=== PATIENT | female | born 1955 | race Caucasian/White ===

== ENCOUNTER 2017-08-06 08:23 | Emergency (ER) | payer OTHER ==
[2017-08-06] MEDS ORDERED: SODIUM CHLORIDE 0.9% 1000 ML INFUS.BAG IV ONE (08:36)
[2017-08-06] MEDS ORDERED: ONDANSETRON 4 MG/2 ML VIAL IVPUSH ONE (08:36)
--- NOTE | 2017-08-06 08:36 | PDOC ---
History of Present Illness - General Chief Complaint: Pain Stated Complaint: ABDOMINAL PAIN Time Seen by Provider: 08/06/17 08:27 - History of Present Illness Initial Comments: 08/06/17 09:31 Chief complaint: Nausea vomiting diarrhea abdominal pain History of present illness: 62 years old no significant past medical history presents to the emergency department with history of nausea vomiting diarrhea and diffuse abdominal pain. Prior to illness patient had several days of subjective fever chills body aches. No travel no sick contacts today has had greater than 10 episodes of nonbilious bloody nonbilious emesis and nonbloody watery diarrhea. No recent hospitalizations no recent travel. Abdominal discomfort is diffuse crampy comes and goes usually associated with the episodes of vomiting and the diarrhea. Symptoms are moderate persistent constant no exacerbating or alleviating factors Past History - Past Medical History Allergies/Adverse Reactions: Allergies Allergy/AdvReac Type Severity Reaction Status Date / Time erythromycin base AdvReac Verified 08/06/17 08:47 [Erythromycin Base] Home Medications: Ambulatory Orders Levothyroxine [Synthroid -] 88 mcg PO DAILY 06/05/14 Ondansetron [Zofran Odt -] 4 mg SL BID #14 od.tablet 08/06/17 Cancer: Yes (THYROID CA) Thyroid Disease: Yes - Suicide/Smoking/Psychosocial Hx Smoking Status: No Smoking History: Never smoked Number of Cigarettes Smoked Daily: 0 Hx Alcohol Use: No Drug/Substance Use Hx: No Review of Systems - Review of Systems Comments:: 08/06/17 09:34 ROS: A complete review of 10 out of 10 review of systems is taken and is negative apart from what is previously mentioned below and in the HPI. *Physical Exam - Physical Exam Comments: 08/06/17 09:34 Vitals: Triage Vital signs reviewed General Appearance: no acute distress, well nourished well developed, Head: Atraumatic, Eyes: Pupils equal reactive round, extraocular movement intact Throat: Posterior oropharynx without erythema, mucous membranes moist, Neck: Supple;No Nucal rigidity Chest Wall: Nontender Cardiac: Regular rate and rhythym, no murmurs, no rubs, no gallops, Lungs: Clear to auscultation bilateral, good air movement bilaterally, Abdomen: Soft, non distended, normal bowel sounds, mild diffuse tenderness to palpation. No localizing tenderness to palpation. No McBurney's point tenderness. No rebound no guarding Extremities: Full range of motion to all extremities, no cyanosis, clubbing, or edema Skin: Warm and dry, no rashes or lesions, no rash, no petechiae Neuro: AOX3; Cranial Nerves 2-12 grossly intact, Strength intact to all extremities, Sensation intact to all extremities,gait normal Psych: normal mood, normal affect ED Treatment Course - LABORATORY CBC & Chemistry Diagram: 08/06/17 09:08 08/06/17 09:08 Medical Decision Making - Medical Decision Making 08/06/17 09:37 62 years old no significant past medical history presents to the ED with 1 day history of profuse nausea vomiting diarrhea and use abdominal discomfort. Differential diagnosis includes influenza, viral GI illness, food borne illness , less likely acute surgical abdominal pathology such as appendicitis We will treat with IV fluids and antiemetics perform serial abdominal examinations labs and reassess 08/06/17 12:15 Patient feels much better after fluids antiemetics History examination consistent with influenza-like illness We'll recommend alternating Tylenol Motrin liquid diet times one day and Zofran for nausea. Repeat abdominal examination benign no rebound no guarding no localizing tenderness to palpation Findings, the need for follow-up, strict return instructions discussed with patient. *DC/Admit/Observation/Transfer Diagnosis at time of Disposition: Nausea & vomiting Qualifiers: Vomiting type: unspecified Vomiting Intractability: unspecified Qualified Code( s): R11.2 - Nausea with vomiting, unspecified - Discharge Dispostion Admit: No - Referrals - Patient Instructions Printed Discharge Instructions: DI for Nausea -- Adult, Influenza Additional Instructions: Drink plenty of fluids. Zofran as prescribed. Tylenol and Motrin as directed on package as needed for fever or body aches. If no vomiting by tomorrow midmorning okay to proceed to a bland diet. Return to the emergency department immediately for any severe worsening symptoms inability to eat or drink or for any concerns. Follow-up with your primary care provider in 3-4 days. - Post Discharge Activity Forms/Work/School Notes: Back to Work
[2017-08-06 08:46] VITALS: TEMP 98.5; BMI 27.4
[2017-08-06] MEDS ORDERED: ONDANSETRON 4 MG/2 ML VIAL ONE (08:50)
[2017-08-06 09:39] LABS: ANION GAP 9 (8-16); BLOOD UREA NITROGEN 15 mg/dl (7-18); CALCIUM 8.6 mg/dl (8.4-10.2); CHLORIDE 102 mmol/L (98-107); CO2 27 mmol/L (22-28); CREATININE 0.8 mg/dl (0.6-1.3); GLUCOSE,RANDOM 129 mg/dl (74-106); POTASSIUM 3.6 mmol/L (3.5-5.1); SODIUM 138 mmol/L (136-145)
[2017-08-06 09:54] LABS: HEMATOCRIT 41.1 % (32.4-45.2); HEMOGLOBIN 13.9 GM/dl (10.7-15.3); MCH 30.2 pg (25.7-33.7); MCHC 33.9 g/dl (32.0-36.0); MEAN CELL VOLUME 89.1 fl (80-96); MEAN PLT VOLUME 7.4 fl (7.5-11.1); PLATELET COUNT 328 K/MM3 (134-434); RBC 4.61 M/mm3 (3.60-5.2); RDW 11.5 % (11.6-15.6); WHITE BLOOD COUNT 7.5 K/mm3 (4.0-10.8)
[2017-08-06] MEDS ORDERED: ACETAMINOPHEN 1000 MG/100 ML VIAL (NON FORMULARY) IVPB ONE (10:01)
[2017-08-06] MEDS ORDERED: METOCLOPRAMIDE HCL INJECTION 10 MG/2 ML VIAL IM ONE (10:02)
[2017-08-06] MEDS ORDERED: METOCLOPRAMIDE HCL INJECTION 10 MG/2 ML VIAL IVPB ONE (10:04)
[2017-08-06] MEDS ORDERED: ACETAMINOPHEN INJECTION 100 ML IVPB ONE (10:05)
[2017-08-06 12:35] VITALS: BP 130/68; PULSE 78
== END 2017-08-06 12:34 | disposition home or self-care (01) ==
LOC: FER 08:23
PROC: 3E0337Z Introduction of Electrolytic and Water Balance Substance into Peripheral Vein, Percutaneous Approach (ICD-10-PCS; principal; 2017-08-06)
PROC: 3E033GC Introduction of Other Therapeutic Substance into Peripheral Vein, Percutaneous Approach (ICD-10-PCS; 2017-08-06)
PROC: 3E033NZ Introduction of Analgesics, Hypnotics, Sedatives into Peripheral Vein, Percutaneous Approach (ICD-10-PCS; 2017-08-06)
DX: R11.2 Nausea with vomiting, unspecified (principal); Z85.850 Personal history of malignant neoplasm of thyroid
CPT/HCPCS: 36415; 80048; 85025; 99282-25

== ENCOUNTER 2017-10-15 12:45 | Emergency (ER) | payer OTHER ==
[2017-10-15 12:48] VITALS: TEMP 97.9; BMI 32.8
--- NOTE | 2017-10-15 12:50 | PDOC ---
History of Present Illness - General Chief Complaint: Palpitations Stated Complaint: PALPITATIONS Time Seen by Provider: 10/15/17 12:47 - History of Present Illness Initial Comments: 10/15/17 13:37 62yo female with a pmhx of thyroid cancer s/p resection on synthroid replacement and pvcs presents c/o palpitations today while in the shower. States she has been feeling arm and leg weakness for the last few weeks. Had a full physical about a week ago with her PMD - Dr. Cabral, who stated her TSH was "off" and he increased her dose of synthroid to 88mcg daily except on the 7th day to take an extra 88mcg. Pt states she has been doing this for about a week. States she has felt overall fatigue recently. States she does feel hot generally, but recently she has felt colder. Denies caffeine use this am. States her sister had dermatomyositis and she has anxiety that her arm and leg weakness (bilateral) is a rheumatologic disease. Has been following with a nurse wound since 2009 and told that her +GERMAINE is a false positive and the rest of her rheum workup was negative. Pt states she noticed her arms feeling generally weak this AM - bilateral and she started to feel nervous and then felt her heart racing. States she felt her heart " flipping around in her chest". No cp or sob. NO f/c. No abd pain. No n/v/d. No dysuria. No falls. No other complaints. States she feels her arms are weak when she is carrying plates of food and her legs are weak when going up stairs. Her lithograph press feeder is Dr. Box - last seen with a "normal" echo per the patient in July and a negative stress test a year ago. PMD is Dr. Cabral. Her insurance billing clerk is in the [employer] [facility]. Pmhx: thyroid ca s/p resection on synthroid, pvc Pshx: thyroid resection allergies: erythromycin Past History - Past Medical History Allergies/Adverse Reactions: Allergies Allergy/AdvReac Type Severity Reaction Status Date / Time erythromycin base AdvReac Verified 10/15/17 12:46 [Erythromycin Base] Home Medications: Ambulatory Orders Levothyroxine [Synthroid -] 88 mcg PO DAILY 06/05/14 Levothyroxine Sodium [Synthroid] 2 tab PO ASDIR 04/23/18 Cancer: Yes (THYROID CA) COPD: No Thyroid Disease: Yes (hypo) - Suicide/Smoking/Psychosocial Hx Smoking Status: No Smoking History: Never smoked Number of Cigarettes Smoked Daily: 0 Hx Alcohol Use: No Drug/Substance Use Hx: No Substance Use Type: None Review of Systems - Review of Systems Able to Perform ROS?: Yes Is the patient limited Thai proficient: No Constitutional: Yes: Weakness, Other (feels colder than normal). No: Chills, Fever HEENTM: No: Blurred Vision, Double Vision, Nose Pain, Throat Pain Respiratory: No: Cough, Shortness of Breath, SOB with Exertion Cardiac (ROS): Yes: Palpitations. No: Chest Pain, Edema, Irregular Heart Rate ABD/GI: No: Diarrhea, Nausea, Vomiting, Abdominal cramping : No: Burning, Dysuria Musculoskeletal: No: Back Pain Integumentary: No: Rash Neurological: No: Headache, Numbness, Paresthesia, Tingling, Unsteady Gait, Ataxia Psychiatric: Yes: Anxiety, Stressors Endocrine: Yes: Intolerance to Cold. No: Change in Weight All Other Systems: Reviewed and Negative *Physical Exam - Vital Signs Last Vital Signs Temp Pulse Resp BP Pulse Ox 97.9 F 84 18 119/81 99 10/15/17 12:45 10/15/17 12:45 10/15/17 12:45 10/15/17 12:45 10/15/17 12:45 - Physical Exam General Appearance: Yes: Nourished, Appropriately Dressed HEENT: positive: EOMI, Normal ENT Inspection, Pharynx Normal Neck: positive: Trachea midline, Supple Respiratory/Chest: positive: Lungs Clear, Normal Breath Sounds. negative: Respiratory Distress Cardiovascular: positive: Regular Rhythm, Regular Rate, S1, S2 Gastrointestinal/Abdominal: positive: Normal Bowel Sounds, Flat, Soft. negative : Tender, Guarding, Rebound, Tenderness Musculoskeletal: positive: Normal Inspection Extremity: positive: Normal Capillary Refill, Normal Inspection Integumentary: positive: Normal Color, Dry, Warm Neurologic: positive: donkey engine firer/fireman II-XII NML intact, Fully Oriented, Alert, Normal Mood/ Affect, Motor Strength 5/5 Heart Score/ECG Review - ECG Intrepretation Comment:: 10/15/17 13:45 sinus at 76, nl axis, nl interval, no acute st/t wave findings, no pvc ED Treatment Course - LABORATORY CBC & Chemistry Diagram: 10/15/17 13:15 10/15/17 13:15 Medical Decision Making - Medical Decision Making 10/15/17 13:46 a/p: 62yo female with palpitations which have since resolved -no PE risk factors, no leg swelling or calf cramping -suspect palpitations are a combination of stress/anxiety along with recent changes in her synthroid dosing -will check labs, ekg, cxr -will monitor on tele -no papitations at this time -no cp/sob 10/15/17 14:04 cxr without acute findings 10/15/17 14:04 pt is ambulatory in the ED in NAD 10/15/17 14:18 pt states her LFTs have been elevated in the past. told everything was "normal" last week except her thyroid function. will check RUQ u/s states she has been told she has a fatty liver in the past 10/15/17 16:47 tsh low and free t4 mildly elevated discussed this in full detail with the patient discussed following up with her insurance billing clerk discussed going to 88mcg/day instead of the increased dose discussed following up with Dr. Cabral answered all questions *DC/Admit/Observation/Transfer Diagnosis at time of Disposition: Palpitations, Hyperthyroidism determined by thyroid function test - Discharge Dispostion Disposition: HOME Condition at time of disposition: Stable Admit: No - Referrals Referrals: Shannon Cabral MD [Primary Care Provider] - Cali Gan MD [Staff Physician] - Kong Box MD [Staff Physician] - Eloy Rossi MD [Staff Physician] - - Patient Instructions Printed Discharge Instructions: DI for Hyperthyroidism, DI for Palpitations Additional Instructions: Please make an appointment to see your PMD and the insurance billing clerk this week. Please also follow up with Dr. Box from cardiology for further eval of the palpitations. Please return to the ED with any further complaints. Please do not double up on your synthroid. - Post Discharge Activity - Attestations Physician Attestion: 10/15/17 16:50 I, Dr. Martita Castillo, DO, attest that this document has been prepared under my direction and personally reviewed by me in its entirety. I further attest, that it accurately reflects all work, treatment, procedures and medical decision -making performed by me.
[2017-10-15 13:44] LABS: HEMATOCRIT 37.1 % (32.4-45.2); HEMOGLOBIN 12.9 GM/dl (10.7-15.3); MCH 31.3 pg (25.7-33.7); MCHC 34.7 g/dl (32.0-36.0); MEAN CELL VOLUME 90.2 fl (80-96); MEAN PLT VOLUME 7.4 fl (7.5-11.1); PLATELET COUNT 326 K/MM3 (134-434); RBC 4.11 M/mm3 (3.60-5.2); RDW 11.9 % (11.6-15.6); WHITE BLOOD COUNT 3.1 K/mm3 (4.0-10.8)
[2017-10-15 13:48] LABS: ACTIVATED PTT 33.6 SECONDS (24.0-38.9)
[2017-10-15 13:50] LABS: ALBUMIN 3.5 g/dl (3.5-5.0); ALK PHOS 93 U/L (32-92); ANION GAP 6 (8-16); BLOOD UREA NITROGEN 14 mg/dl (7-18); CALCIUM 8.5 mg/dl (8.4-10.2); CHLORIDE 106 mmol/L (98-107); CO2 26 mmol/L (22-28); CREATININE 0.8 mg/dl (0.6-1.3); GLUCOSE,RANDOM 123 mg/dl (74-106); MAGNESIUM 2.1 mg/dL (1.8-2.4); POTASSIUM 3.8 mmol/L (3.5-5.1); SGOT/AST 77 U/L (10-42); SGPT/ALT 119 U/L (10-40); SODIUM 138 mmol/L (136-145); TOT PROT 6.8 g/dl (6.4-8.3)
[2017-10-15 13:53] LABS: INR 1.16 (0.82-1.09); PROTHROMBIN TIME (PATIENT) 12.9 SEC (10.2-13.0)
[2017-10-15 14:01] LABS: BILIRUBIN,TOTAL < 0.5 mg/dl (0.2-1.0)
[2017-10-15 16:51] VITALS: BP 138/78; PULSE 78
[2017-10-15 18:16] LABS: PLATELET ESTIMATE ADEQUATE
--- NOTE | 2017-10-16 13:35 | EKG ---
Test Reason : Blood Pressure : / mmHG Vent. Rate : 076 BPM Atrial Rate : 076 BPM P-R Int : 118 ms QRS Dur : 090 ms QT Int : 406 ms P-R-T Axes : 034 047 058 degrees QTc Int : 456 ms NORMAL SINUS RHYTHM NONSPECIFIC ST AND T WAVE ABNORMALITY ABNORMAL ECG WHEN COMPARED WITH ECG OF 05-JUN-2014 05:50, NO SIGNIFICANT CHANGE WAS FOUND Confirmed by MD EULOGIO, CARLO ([id number]) on 10/16/2017 1:34:58 PM Referred By: Confirmed By:CARLO KRISHNAN MD
== END 2017-10-15 17:01 | disposition home or self-care (01) ==
LOC: SUPCPDRO 12:45 → FER 12:45
DX: R00.2 Palpitations (principal); E05.90 Thyrotoxicosis, unspecified without thyrotoxic crisis or storm
CPT/HCPCS: 36415; 71046-TC-FY; 76705-TC; 80053; 82550; 83735; 84439; 84443; 84484; 85025; 85610; 85651; 85730; 86140; 93005; 99284-25

== ENCOUNTER 2022-10-09 21:20 | Inpatient (IN) | payer OTHER ==
[2022-10-09 23:02] LABS: EPI CELLS 1 /uL (0-25.1); HYALINE CASTS 0 /uL (0-3.1); PH,URINE 5.5 (5.0-8.0); URINE APPEARANCE CLEAR; URINE BACTERIA 0 /uL (0-1359); URINE BILIRUBIN NEGATIVE (NEGATIVE); URINE COLOR YELLOW; URINE GLUCOSE (UA) NEGATIVE (NEGATIVE); URINE KETONE NEGATIVE (NEGATIVE); URINE LEUK ESTERASE NEGATIVE (NEGATIVE); URINE NITRITE NEGATIVE (NEGATIVE); URINE PROTEIN NEGATIVE (NEGATIVE); URINE RBC 14 /uL (0-23.9); URINE UROBILINOGEN 0.2 mg/dL (0.2-1.0); URINE WBC 1 /uL (0-25.8)
[2022-10-09] MEDS ORDERED: ACETAMINOPHEN 1000 MG/100 ML BAG IVPB ONE (23:57)
[2022-10-10 00:59] LABS: BASO % 0.9 % (0-2.0); EOS % 2.8 % (0-4.5); HEMATOCRIT 36.8 % (32.4-45.2); HEMOGLOBIN 12.8 GM/dL (10.7-15.3); LYMPH % 11.1 % (8-40); MCH 30.9 pg (25.7-33.7); MCHC 34.8 g/dl (32.0-36.0); MEAN CELL VOLUME 88.7 fl (80-96); MEAN PLT VOLUME 7.3 fl (7.5-11.1); MONO % 19.5 % (3.8-10.2); NEUT % 65.7 % (42.8-82.8); PLATELET COUNT 343 10^3/uL (134-434); RBC 4.15 M/mm3 (3.60-5.2); RDW 13.1 % (11.6-15.6)
[2022-10-10 01:20] LABS: BLOOD UREA NITROGEN 13.3 mg/dL (7-18); CALCIUM 8.6 mg/dL (8.5-10.1)
[2022-10-10 01:21] LABS: ALBUMIN 3.8 g/dl (3.4-5.0)
[2022-10-10 01:23] LABS: CREATININE 0.8 mg/dL (0.55-1.3)
[2022-10-10 01:25] LABS: BILIRUBIN,TOTAL 0.6 mg/dL (0.2-1); TOT PROT 7.8 g/dl (6.4-8.2)
[2022-10-10] MEDS ORDERED: LACTATED RINGERS SOLUTION 1000 ML INFUS.BAG IV ONE ×2 (04:02→04:05)
[2022-10-10] MEDS ORDERED: DOCUSATE SODIUM 100 MG CAPSULE (FP) PO PRN (05:56)
[2022-10-10] MEDS ORDERED: SODIUM CHLORIDE 1,000 ML IV SCH (06:00)
[2022-10-10] MEDS ORDERED: ACETAMINOPHEN 1000 MG/100 ML BAG IVPB PRN (06:05)
[2022-10-10 06:40] LABS: HEMATOCRIT 35.1 % (32.4-45.2); HEMOGLOBIN 12.5 GM/dL (10.7-15.3); MCH 31.2 pg (25.7-33.7); MCHC 35.5 g/dl (32.0-36.0); MEAN CELL VOLUME 87.8 fl (80-96); MEAN PLT VOLUME 7.4 fl (7.5-11.1); PLATELET COUNT 293 10^3/uL (134-434); RDW 13.2 % (11.6-15.6); WHITE BLOOD COUNT 4.7 K/mm3 (4.0-10.0)
[2022-10-10 06:56] LABS: BLOOD UREA NITROGEN 9.1 mg/dL (7-18); CALCIUM 8.6 mg/dL (8.5-10.1)
[2022-10-10 06:57] LABS: MAGNESIUM 1.9 mg/dL (1.8-2.4)
[2022-10-10 06:58] LABS: INR 1.11 (0.83-1.09); PROTHROMBIN TIME (PATIENT) 12.9 SEC (9.7-13.0)
[2022-10-10 06:59] LABS: PHOSPHOROUS 3.1 mg/dL (2.5-4.9)
[2022-10-10 07:00] LABS: ACTIVATED PTT 36.2 SECONDS (25.2-36.5); CREATININE 0.7 mg/dL (0.55-1.3)
[2022-10-10] MEDS ORDERED: ACETAMINOPHEN INJECTION 100 ML IVPB ONE (07:28)
[2022-10-10 10:26] LABS: ANISOCYTOSIS 0; HELMET CELLS 0; HOWELL-JOLLY BODIES 0; MACROCYTOSIS 0; OVALOCYTE 0; ROULEAU 0; SICKELED CELLS 0; TARGET CELLS 0; TEAR DROP CELLS 0; TOXIC GRANULATION 0
[2022-10-10 10:42] VITALS: BMI 31.1
[2022-10-10] MEDS: ENOXAPARIN NA (PORCINE) 40 MG/0.4 ML DISP.SYRIN SQ SCH (10:49)
[2022-10-10] MEDS: LACTATED RINGERS SOLUTION 1,000 ML/1,000 ML INFUS.BAG IV SCH ×2 (11:21→18:34)
[2022-10-10] MEDS: ESCITALOPRAM OXALATE 10 MG TABLET PO SCH (16:22)
[2022-10-10] MEDS ORDERED: MELATONIN 5 MG TABLETS PO PRN (21:25)
[2022-10-11] MEDS ORDERED: LEVOTHYROXINE NA 88 MCG TABLET (FP) PO SCH (07:00)
[2022-10-11 08:08] LABS: HEMATOCRIT 33.4 % (32.4-45.2); HEMOGLOBIN 11.6 GM/dL (10.7-15.3); MCH 30.7 pg (25.7-33.7); MCHC 34.8 g/dl (32.0-36.0); MEAN CELL VOLUME 88.3 fl (80-96); MEAN PLT VOLUME 7.8 fl (7.5-11.1); PLATELET COUNT 288 10^3/uL (134-434); RBC 3.78 M/mm3 (3.60-5.2); RDW 12.9 % (11.6-15.6); WHITE BLOOD COUNT 2.6 K/mm3 (4.0-10.0)
[2022-10-11 08:23] LABS: CHLORIDE 105 mmol/L (98-107); SODIUM 139 mmol/L (136-145)
[2022-10-11 08:30] LABS: ALBUMIN 3.2 g/dl (3.4-5.0); ANION GAP 7 MMOL/L (8-16); BLOOD UREA NITROGEN 7.9 mg/dL (7-18); CALCIUM 8.4 mg/dL (8.5-10.1); CO2 27 mmol/L (21-32); GLUCOSE,RANDOM 86 mg/dL (74-106); LIPASE 104 U/L (73-393)
[2022-10-11 08:32] LABS: AMYLASE 51 U/L (25-115); CREATININE 0.7 mg/dL (0.55-1.3)
[2022-10-11 08:33] LABS: IRON SERUM 65 ug/dL (50-175); SGOT/AST 20 U/L (15-37); SGPT/ALT 36 U/L (13-61); TOTAL IRON BINDING CAPACITY 293 ug/dL (250-450)
[2022-10-11 08:34] LABS: BILIRUBIN,TOTAL 0.7 mg/dL (0.2-1); TOT PROT 6.6 g/dl (6.4-8.2)
[2022-10-11 08:35] LABS: ALK PHOS 74 U/L (45-117)
[2022-10-11 09:15] LABS: ANISOCYTOSIS 0; HELMET CELLS 0; HOWELL-JOLLY BODIES 0; MACROCYTOSIS 0; OVALOCYTE 0; ROULEAU 0; SICKELED CELLS 0; TARGET CELLS 0; TEAR DROP CELLS 0; TOXIC GRANULATION 0
[2022-10-11] MEDS: LACTATED RINGERS SOLUTION 1,000 ML/1,000 ML INFUS.BAG IV SCH (09:17)
[2022-10-11] MEDS: ESCITALOPRAM OXALATE 10 MG TABLET PO SCH (09:18)
[2022-10-11] MEDS: ENOXAPARIN NA (PORCINE) 40 MG/0.4 ML DISP.SYRIN SQ SCH (09:18)
[2022-10-11] MEDS ORDERED: POTASSIUM CHLORIDE TABS 10 MEQ TABLET.ER (FP) PO ONE (10:24)
[2022-10-11 14:51] VITALS: BP 139/76; PULSE 70; RESP 20; TEMP 98
[2022-10-12 21:07] LABS: GLIADIN ANTIBODY IGA 7 units (0-19); GLIADIN ANTIBODY IGG 3 units (0-19); TRANSGLUTAMINASE IGG < 2 U/mL (0-5)
== END 2022-10-11 19:03 | disposition home or self-care (01) | DRG 440 ==
LOC: JER 21:20 → JERBED 10-10 04:29 → J4W 10-10 09:28
PROVIDERS: ADMIT Internal Medicine; ATTEND Family Medicine
DX: K86.1 Other chronic pancreatitis (principal); R10.30 Lower abdominal pain, unspecified; G89.29 Other chronic pain; E03.9 Hypothyroidism, unspecified; R94.31 Abnormal electrocardiogram [ECG] [EKG]; D72.819 Decreased white blood cell count, unspecified
CPT/HCPCS: 0241U-QW; 36415; 71046-TC-FY; 71260-TC; 72131-TC; 74177-TC; 76705-TC; 80048; 80053; 80061; 81003; 81374; 82150; 82728; 82784; 82787; 83516; 83540; 83550; 83690; 83735; 83883; 84100; 84443; 84484; 85025; 85610; 85730; 86038; 86140; 86160; 86225; 86431; 87086; 93005; 93010; 99285-25; Q9967